=== PATIENT | male | born 1955 | race Caucasian/White ===

== ENCOUNTER → 2022-07-22 | Outpatient (CLI) | payer MEDICARE, OTHER ==
[~2022-07-22] MED LIST: FUROSEMIDE INJ 10 MG/ML 4 ML VIAL ONE
== END ==
LOC: NM 12:28
PROVIDERS: ATTEND Urology
DX: Z87.442 Personal history of urinary calculi (principal)
CPT/HCPCS: 78708; A9562; J1940

== ENCOUNTER → 2022-08-11 | Day surgery (SDC) | payer MEDICARE, OTHER ==
[2022-08-10 14:37] LABS: BASOPHILS % 0.6 % (0.0-1.0); EOSINOPHILS # (AUTO) 0.2 (0.0-0.4); EOSINOPHILS % 2.6 % (0.0-6.0); HEMATOCRIT 40.6 % (38.2-49.6); HEMOGLOBIN 12.9 g/dL (14.0-18.0); LYMPHOCYTES # (AUTO) 1.3 (1.0-3.2); LYMPHOCYTES % 21.2 % (18.0-39.1); MEAN CORPUSCULAR HEMOGLOBIN 30.1 pg (28-32); MEAN CORPUSCULAR HGB CONC 31.8 g/dL (31-35); MEAN CORPUSCULAR VOLUME 94.6 fL (81-99); MONOCYTES # (AUTO) 0.5 (0.2-0.8); MONOCYTES % 7.4 % (4.4-11.3); NEUTROPHILS # (AUTO) 4.2 (2.1-6.9); NEUTROPHILS % 67.6 % (38.7-80.0); PLATELET COUNT 359 x10e3/uL (140-360); RED BLOOD COUNT 4.29 x10e6/uL (4.3-5.7); RED CELL DISTRIBUTION WIDTH 13.2 % (11.7-14.4)
[2022-08-10 14:55] LABS: ANION GAP 15.6 mmol/L (8-16); CALCIUM 9.3 mg/dL (8.4-10.2); CREATININE, SERUM 1.28 mg/dL (0.72-1.25); POTASSIUM 4.6 mmol/L (3.5-5.1)
[~2022-08-11] MED LIST changes: +ACETAMINOPHEN 1000 MG/100 ML 100 ML IV ONE; +AMLODIPINE-BEN1 EAC2 PO; +DEXAMETHASONE SOD PHOS INJ 4 MG/ML SDV ONE; +FENTANYL CITRATE/PF 100MCG/2 ML INJ ONE; +FLOMAX0.4 MG PO; -FUROSEMIDE INJ 10 MG/ML 4 ML VIAL ONE; +GENTAMICIN 80MG/NS 100 ML 200 ML IV ONE; +IOPAMIDOL 610MG/1ML 300 MG/ML VIAL IV ONE; +LEVOFLOXACIN250 MG PO; +LIDOCAINE HCL 2% LOCAL INJ 5 ML SDV VIAL INJ ONE; +ONDANSETRON HCL INJ 2MG/ML 2ML 2 MG/ML VIAL ONE; +POVIDONE IODINE 0.05% 0.05 % ML PO ONE; +PROPOFOL IV EMULSION 10 MG/ML 20 ML VIAL ONE; +SEVOFLURANE INHAL SOLN 250 ML PEN BTL ONE
[2022-08-11 09:45] VITALS: BP 103/53
== END | disposition home or self-care (01) ==
LOC: OR 05:43
PROVIDERS: ATTEND Urology
DX: N39.0 Urinary tract infection, site not specified (principal); N13.30 Unspecified hydronephrosis; N28.1 Cyst of kidney, acquired; I12.9 Hypertensive chronic kidney disease with stage 1 through stage 4 chronic kidney disease, or unspecified chronic kidney disease; N18.9 Chronic kidney disease, unspecified; N40.1 Benign prostatic hyperplasia with lower urinary tract symptoms; R33.8 Other retention of urine; R39.14 Feeling of incomplete bladder emptying; R35.1 Nocturia; N32.89 Other specified disorders of bladder; N13.8 Other obstructive and reflux uropathy; N31.9 Neuromuscular dysfunction of bladder, unspecified; N39.41 Urge incontinence; K42.9 Umbilical hernia without obstruction or gangrene; N43.40 Spermatocele of epididymis, unspecified; R80.9 Proteinuria, unspecified; Z01.810 Encounter for preprocedural cardiovascular examination; Z01.812 Encounter for preprocedural laboratory examination; Z01.818 Encounter for other preprocedural examination; Z79.899 Other long term (current) drug therapy; Z87.891 Personal history of nicotine dependence
CPT/HCPCS: 36415; 52005; 71046; 74420; 80048; 85025; 93005; C1758; J0131; J1100; J1580; J2001; J2405; J2704; J3010; Q9967